=== PATIENT | male | born 1995 | race Caucasian/White ===

== ENCOUNTER → 2018-03-16 | Outpatient (CLI) | payer BC | END | disposition home or self-care (01) | LOC: ECHO 08:40 | DX: I49.1 Atrial premature depolarization (principal); I51.7 Cardiomegaly | CPT/HCPCS: 93225; 93306 ==

== ENCOUNTER → 2018-03-23 | Outpatient (CLI) | payer BC | END | disposition home or self-care (01) | LOC: EKG 10:01 | DX: I49.1 Atrial premature depolarization (principal) | CPT/HCPCS: 93225 ==

== ENCOUNTER → 2018-06-24 | Outpatient (CLI) | payer BC, OTHER ==
[~2018-06-24] MED LIST: ASCO500T3 PO; CALC-98 PO; CHOL500016 PO; CONTRAST GIVEN. MC PRN; GABA-586 PO; GABA600T2 PO; GABA800T2 PO; IOHEXOL 240 MG/ML 50ML VIAL. IV ONE; IOHEXOL 240 MG/ML 50ML VIAL. ONE; LEVE500T56 PO; LIDOCAINE WITH 8.4% SOD BICARB 3 ML DISP.SYRIN. INJ ONE; LIDOCAINE WITH 8.4% SOD BICARB 3 ML DISP.SYRIN. ONE; META-21 PO; NAPR-514 PO; PROP10TA PO; TAMS0.4C2 PO
--- NOTE | 2018-06-29 08:14 | RAD ---
Exam: Fluoroscopic and ultrasound guided right upper extremity midline placement 06/29/2018 8:09 AM .Indication: Intermediate term IV antibiotics. Technique: Informed oral and written consent were obtained. The right upper extremity was prepped and draped using sterile barrier technique. All elements of maximal sterile barrier technique including the use of a cap, mask, sterile gown, sterile gloves, large sterile sheet, appropriate hand hygiene, and 2% chlorhexidine for cutaneous antisepsis (or acceptable alternative antiseptic per current guidelines) were followed for this procedure.. Real-time ultrasound demonstrated a patent right basilic vein which was prepped and draped in usual sterile fashion. 1% lidocaine used for local anesthesia. Using real-time ultrasound guidance the access needle percutaneously punctured the selected right basilic vein. A wire would not advance centrally. A venogram was obtained demonstrate multiple irregular collaterals. A guidewire was eventually associated centrally though the PICC line would not advance. This access was abandoned. One of 2. Brachial veins was then accessed. Venograms were obtained. A wire was advanced centrally. Again due to a combination of tortuosity, small vessel caliber, and spasm Wire would not advance centrally. Alignment without evidence essentially. The PICC line was trimmed to length and midline placed. Ultrasound images were saved to the medical record. FLUORO TIME: 22 MINS DOSE AREA PRODUCT: 16 Gycm2 Impression: Ultrasound and fluoroscopically guided placement of a right upper extremity midline.
== END | disposition home or self-care (01) ==
LOC: INTRAD 13:39
PROVIDERS: ATTEND Nurse Practitioner Gerontology
DX: I49.1 Atrial premature depolarization (principal); I51.7 Cardiomegaly; N39.0 Urinary tract infection, site not specified; Z79.899 Other long term (current) drug therapy
CPT/HCPCS: 36569; 37248; 75820; 76937; 77001; C1725; C1751; C1769; C1892; Q9966

== ENCOUNTER → 2018-11-12 | Outpatient (CLI) | payer BC, OTHER ==
[2018-07-04 09:06] VITALS: BP 121/60
[~2018-11-12] MED LIST changes: -CONTRAST GIVEN. MC PRN; -GABA-586 PO; +GABA300C18 PO; -GABA600T2 PO; +GABA600T7 PO; -GABA800T2 PO; +GABA800T5 PO; +IOHEXOL 180 MG/ML 10 ML VIAL. IJ ONE; -IOHEXOL 240 MG/ML 50ML VIAL. IV ONE; -IOHEXOL 240 MG/ML 50ML VIAL. ONE; -LIDOCAINE WITH 8.4% SOD BICARB 3 ML DISP.SYRIN. INJ ONE; -LIDOCAINE WITH 8.4% SOD BICARB 3 ML DISP.SYRIN. ONE
--- NOTE | 2018-11-12 14:40 | RAD ---
Fluoroscopically guided left shoulder joint injection, 11/12/2018: History: Shoulder pain, joint injection for CT arthrography Under local anesthesia, aseptic conditions and fluoroscopic guidance a 22-gauge spinal needle was passed into the left shoulder joint via an anterior approach. 15 cc of Omnipaque 180 was injected into the joint. The spinal needle was then removed and hemostasis obtained. 2 fluoroscopic spot images were recorded. 1.5 minutes of fluoroscopy time was utilized. The patient tolerated the procedure well and was sent to CT in good condition.
--- NOTE | 2018-11-12 16:12 | RAD ---
CT UPPER EXTREMTY W/CONTRST LT Indication: Left shoulder pain. Patient is unable to have MRI. Exposure: One or more of the following individualized dose reduction techniques were utilized for this examination: 1. Automated exposure control 2. Adjustment of the mA and/or kV according to patient size 3. Use of iterative reconstruction technique. Comparison: None are available. TECHNIQUE: Intra-articular contrast injected prior to the scan. Planar reconstructions are obtained of the left shoulder. FINDINGS: Acromioclavicular joint is intact. No abnormal contrast accumulation within the rotator cuff or within the subdeltoid bursa to indicate a rotator cuff tear. Articular cartilage demonstrates no focal defect. Superior labrum is slightly blunted. No evidence of labral detachment. Biceps tendon is situated within the bicipital groove. No acute fracture. No aggressive bone destruction. There is an irregular left pulmonary nodule, coronal series 8, image 13, measuring 8 mm diameter. IMPRESSION: 1. Blunting of the superior labrum, questionable significance. Could indicate an old tear or degeneration. However, no clear-cut labral detachment is identified. 2. Left pulmonary nodule measures 8 mm. As per revised Fleischner guidelines, recommend follow-up CT chest in 6 months. Electronically signed by: Choco Cramer MD (11/12/2018 4:10 PM) [id number]
== END | disposition home or self-care (01) ==
LOC: RAD 12:54
PROVIDERS: ATTEND Orthopaedic Surgery Sports Medicine
DX: M25.512 Pain in left shoulder (principal); I10 Essential (primary) hypertension
CPT/HCPCS: 23350; 73201; 77002; Q9965; 20605